=== PATIENT | female | born 1995 ===

== ENCOUNTER 2019-08-17 22:06 | Outpatient (REF) | payer BC, SELFPAY ==
[2019-08-17 22:15] LABS: Anion Gap 11.2 mmol/L (3-11); BUN 11 mg/dL (7-18); CO2 26.8 mmol/L (21.0-32.0); CREATININE 0.64 mg/dL (0.55-1.02); Calcium 9.8 mg/dL (8.5-10.1); Chloride 103 mmol/L (98-107); Glucose 79 mg/dL (70-100); Potassium 4.1 mmol/L (3.5-5.1); Sodium 141 mmol/L (136-145); TSH (W/Ref FT4) 1.88 uIU/mL (0.36-3.74)
== END 2019-08-17 22:26 ==
LOC: NCHCN 22:06
PROVIDERS: PCP Nurse Practitioner Family; Visit Provider Nurse Practitioner Family
DX: Z00.00 Encounter for general adult medical examination without abnormal findings (principal); Z13.29 Encounter for screening for other suspected endocrine disorder; Z13.228 Encounter for screening for other metabolic disorders
CPT/HCPCS: 80048; 84443

== ENCOUNTER 2020-05-24 14:24 | Outpatient (REF) | payer BC, SELFPAY ==
[2020-05-29 11:01] LABS: SARS-CoV-2 RNA Undetected (Undetected); SARS-CoV-2 Specimen Source Nasopharynx
== END 2020-05-24 14:44 ==
LOC: NCHCN 14:24
PROVIDERS: PCP Nurse Practitioner Family; Visit Provider Nurse Practitioner Family
DX: R53.83 Other fatigue (principal)
CPT/HCPCS: U0003